=== PATIENT | female | born 1965 | race Caucasian/White ===

== ENCOUNTER 2017-05-06 17:15 | Emergency (ER) | payer SELFPAY ==
[~2017-05-06] VITALS: Ht 180.3 cm; Wt 75.0 kg
[2017-05-06] MEDS ORDERED: LEVOTHYROXIN150 MCG PO (17:24)
[2017-05-06] MEDS ORDERED: MOTRIN800 MG PO (18:13)
[2017-05-06 18:15] VITALS: BP 125/88
== END 2017-05-06 18:15 | disposition home or self-care (01) | DRG 93 ==
LOC: ED 17:15
DX: G89.29 Other chronic pain (principal); E03.9 Hypothyroidism, unspecified; M54.5 Low back pain; F17.210 Nicotine dependence, cigarettes, uncomplicated

== ENCOUNTER 2017-05-10 21:57 | Emergency (ER) | payer SELFPAY ==
[~2017-05-10] VITALS: Ht 180.3 cm; Wt 74.8 kg
[~2017-05-10 21:57] MED LIST: LEVOTHYROXIN150 MCG PO; MOTRIN800 MG PO
[2017-05-10 22:49] LABS: URINE BILIRUBIN - DIPSTICK NEGATIVE (NEGATIVE); URINE BLOOD DIPSTICK NEGATIVE (NEGATIVE); URINE CLARITY CLEAR; URINE COLOR YELLOW; URINE GLUCOSE - DIPSTICK NEGATIVE (NEGATIVE); URINE KETONE NEGATIVE (NEGATIVE); URINE LEUK ESTERASE TRACE (NEGATIVE); URINE NITRITE - DIPSTICK NEGATIVE (Negative); URINE PH 5.5 (4.5-8.0); URINE PROTEIN - DIPSTICK NEGATIVE (NEG-TRACE); URINE SPECIFIC GRAVITY 1.025; URINE UROBILINOGEN - DIPSTICK 0.2 E.U./dL (0.2)
[2017-05-10 22:50] LABS: COCAINE NEGATIVE (NEGATIVE); METHADONE NEGATIVE (NEGATIVE); TETRAHYDROCANNABIONOL NEGATIVE (NEGATIVE)
[2017-05-10 22:51] LABS: BARBITURATES NEGATIVE (NEGATIVE); OXCYCODONE POSITIVE (NEGATIVE); TRICYLIC ANTIDEPRESSANTS NEGATIVE (NEGATIVE)
[2017-05-11] MEDS ORDERED: ULTRAM50 M1 PO (00:05)
[2017-05-11] MEDS ORDERED: FLEXERIL PO (00:05)
[2017-05-11 00:26] VITALS: BP 143/65
== END 2017-05-11 00:22 | disposition home or self-care (01) | DRG 563 ==
LOC: ED 21:57
PROVIDERS: Emergency Medicine
DX: S39.012A Strain of muscle, fascia and tendon of lower back, initial encounter (principal); M47.817 Spondylosis without myelopathy or radiculopathy, lumbosacral region

== ENCOUNTER 2019-05-24 12:48 | Emergency (ER) | payer BC ==
[~2019-05-24 12:48] MED LIST changes: +EQL IBUPROFEN200 MG PO; +FLEXERIL PO; +HYDROCODONE/ACE1 TAB PO; +MELOXICAM15 MG PO; +TERBINAFINE250 M1 PO; +ULTRAM50 M1 PO
== END 2019-05-24 12:49 | disposition left against medical advice (07) | DRG 951 ==
LOC: ED 12:48 → LWOBS 12:49
DX: Z91.19 Patient's noncompliance with other medical treatment and regimen (principal)

== ENCOUNTER 2020-01-02 | Emergency (ER) | payer SELFPAY ==
[2020-01-02 18:43] LABS: HEMATOCRIT 38.7 % (37.0-47.0); HEMOGLOBIN 12.7 g/dl (12.0-16.0); IMMATURE GRANULOCYTES 0.3 % (0.0-5.0); MEAN CELL VOLUME 91.7 fL CALC (80.0-100.0); MEAN CORPUSCULAR HGB 30.1 pG CALC (26.0-32.0); MEAN CORPUSCULAR HGB CONC 32.8 g/L CALC (32.0-36.0); NEUT# 7.08 thou/uL (2.00-7.15); RED BLOOD COUNT 4.22 mill/uL (4.20-5.60); RED CELL DISTRI WIDTH 13.4 % (11.5-15.5)
[2020-01-02 19:17] LABS: URINE BILIRUBIN - DIPSTICK SMALL (NEGATIVE); URINE BLOOD DIPSTICK NEGATIVE (NEGATIVE); URINE COLOR YELLOW; URINE GLUCOSE - DIPSTICK NEGATIVE (NEGATIVE); URINE KETONE TRACE mg/dL (NEGATIVE); URINE LEUK ESTERASE NEGATIVE (NEGATIVE); URINE NITRITE - DIPSTICK NEGATIVE (Negative); URINE PH 8.5 (4.5-8.0); URINE PROTEIN - DIPSTICK 100 mg/dL (NEG-TRACE)
[2020-01-02 19:32] LABS: URINE SQUAMOUS EPITHELIAL CELL MODERATE EPI/hpf (0-FEW)
[2020-01-02 19:33] LABS: BARBITURATES NEGATIVE (NEGATIVE); COCAINE NEGATIVE (NEGATIVE); METHADONE NEGATIVE (NEGATIVE); OXCYCODONE NEGATIVE (NEGATIVE); TETRAHYDROCANNABIONOL POSITIVE (NEGATIVE); TRICYLIC ANTIDEPRESSANTS NEGATIVE (NEGATIVE)
[2020-01-02 19:40] LABS: ALBUMIN 4.8 g/dL (3.2-5.0); BILIRUBIN, TOTAL 0.7 mg/dL (0.0-1.4); CREATININE 1.2 mg/dL (0.5-1.0); POTASSIUM 4.5 mmol/l (3.5-5.1); TOTAL PROTEIN 8.2 g/dL (6.3-8.2)
[2020-01-02] MEDS ORDERED: XANAX1 MG PO (20:11)
== END 2020-01-02 20:23 | disposition designated cancer center or children's hospital (05) | DRG 880 ==
PROVIDERS: Family Medicine
DX: R45.851 Suicidal ideations (principal); F32.9 Major depressive disorder, single episode, unspecified; F41.0 Panic disorder [episodic paroxysmal anxiety]; F19.10 Other psychoactive substance abuse, uncomplicated

== ENCOUNTER 2020-04-22 14:48 | Emergency (ER) | payer SELFPAY ==
[~2020-04-22 14:48] MED LIST changes: +XANAX1 MG PO
[2020-04-22] MEDS ORDERED: LEVOTHYROXIN150 MCG PO (15:26)
[2020-04-22 16:15] VITALS: BP 121/79
== END 2020-04-22 16:15 | disposition home or self-care (01) | DRG 605 ==
LOC: ED 14:48
DX: S80.212A Abrasion, left knee, initial encounter (principal); S83.92XA Sprain of unspecified site of left knee, initial encounter; S50.11XA Contusion of right forearm, initial encounter; F17.210 Nicotine dependence, cigarettes, uncomplicated; V18.0XXA Pedal cycle driver injured in noncollision transport accident in nontraffic accident, initial encounter; Y93.55 Activity, bike riding

== ENCOUNTER 2020-08-19 15:54 | Observation (INO) | payer OTHER ==
[~2020-08-19] VITALS: Ht 177.8 cm; Wt 56.2 kg
--- NOTE | 2020-08-19 15:54 | NUR ---
PATIENT RESTING ON EMS STRETCHER AWAITING ROOM ASSIGNMENT NOTIFIED OF PATIENT STATUS
--- NOTE | 2020-08-19 17:00 | NUR ---
PT RESTING TEARY EYED AT TIMES ASKING IF WE CAN FIND OUT HOW HER HUSBAMND IS HE "COLLAPSED YESTERDAY" WAS BROUGHT HERE AND THEN SENT TO [facility], INFORMED PT WE CANNOT OBTIANED THAT INFO, CHEST PAIN RESOLVING AT THIS TIME PER PT STARTED ANOUT 1530 TODAY WHILE AT [facility]ISON. OFFICER REMAINS AT BEDSIDE
[2020-08-19 17:27] LABS: HEMATOCRIT 37.4 % (37.0-47.0); IMMATURE GRANULOCYTES 0.4 % (0.0-5.0); MEAN CELL VOLUME 91.4 fL CALC (80.0-100.0); MEAN CORPUSCULAR HGB 29.3 pG CALC (26.0-32.0); MEAN CORPUSCULAR HGB CONC 32.1 g/dL CAL (32.0-36.0); NEUT# 5.44 thou/uL (2.00-7.15); RED BLOOD COUNT 4.09 mill/uL (4.20-5.60); RED CELL DISTRI WIDTH 13.5 % (11.5-15.5)
--- NOTE | 2020-08-19 17:30 | NUR ---
LEONARDO XRAY COMPLETED AND LAB WAS IN EARLIER TO REDRAW BLOOD FOR HEMOLYZED SPEC'S.
[2020-08-19 17:40] LABS: ALKALINE PHOSPHATASE 88 u/l (38-126); ANION GAP 10 (6-22 (CALC)); BUN 15 mg/dL (7-17); BUN/CREATININE RATIO 16 (12-20 (CALC)); CARBON DIOXIDE 30 mmol/l (22-30); CHLORIDE 99 mmol/l (95-108); CREATININE 0.9 mg/dL (0.5-1.0); GFR > 60 ML/MIN (>=60 (CALC)); GFR FOR AFR.AMER. > 60 ML/MIN (>=60 (CALC)); POTASSIUM 4.1 mmol/l (3.5-5.1); SGOT/AST 38 u/l (14-36); SODIUM 134 mmol/l (137-146); TOTAL PROTEIN 6.9 g/dL (6.3-8.2)
[2020-08-19 17:43] LABS: ALBUMIN 3.8 g/dL (3.2-5.0); BILIRUBIN, TOTAL 0.4 mg/dL (0.0-1.4)
--- NOTE | 2020-08-19 18:43 | NUR ---
PT OOB TO BSC, GUARD REMAINS AT BEDSIDE PT AWARE OF NEED FOR URINE SPEC.
--- NOTE | 2020-08-19 19:24 | NUR ---
REPORT CALLED TO [facility] ON MED SURG
--- NOTE | 2020-08-19 19:30 | NUR ---
PT ARRIVED TO UNIT AT 1930 VIA SNEHA FROM THE ED; ALERT AND ORIENTED AND IN STABLE CONDITION. AMBULATED INDEPENDENLTY WITH STEADY GAIT FROM THE STRETCHER TO THE BED. PT FROM A CORRECTIONAL FACILITY SO GUARD SHACKLED PTS LEFT LEG TO THE HOSPITAL BED. ONE GUARD REMAINED BEDSIDE. PT DENIES PAIN. RESPIRATIONS ARE EVEN AND UNLABORED ON ROOM AIR; PT #18G IV IN THE RAC WHICH IS PATENT AND FREE OF REDNESS. PT ORIENTED TO ROOM AND CALL LIGHT SYSTEM. PLAN OF CARE DISCUSSED. PT ENCOURAGED TO VERBALIZE CONCERNS. STATES UNDERSTANDING. SAFETY MEASURES IN PLACE. CALL LIGHT WITHIN REACH.
--- NOTE | 2020-08-19 19:39 | NUR ---
PT. TAKEN TO [facility] STRETCHER, NO C/O.
[2020-08-19 19:43] LABS: URINE BILIRUBIN - DIPSTICK NEGATIVE (NEGATIVE); URINE BLOOD DIPSTICK NEGATIVE (NEGATIVE); URINE COLOR YELLOW; URINE GLUCOSE - DIPSTICK NEGATIVE (NEGATIVE); URINE KETONE NEGATIVE (NEGATIVE); URINE LEUK ESTERASE NEGATIVE (NEGATIVE); URINE NITRITE - DIPSTICK NEGATIVE (Negative); URINE PH 7.5 (4.5-8.0); URINE PROTEIN - DIPSTICK NEGATIVE (NEG-TRACE); URINE SPECIFIC GRAVITY 1.015; URINE UROBILINOGEN - DIPSTICK 0.2 E.U./dL (0.2)
[2020-08-19 19:50] VITALS: BP 115/73
[2020-08-20] VITALS: BP 109/72
--- NOTE | 2020-08-20 00:02 | NUR ---
PT SEEN EYES CLOSED IN NO APPARENT DISTRESS OR DISCOMFORT. ONE GUARD PRESENT. CALL WYLIE WITH REACH. WILL CONTINUE TO MONITOR.
[2020-08-20 04:00] VITALS: BP 121/77
--- NOTE | 2020-08-20 04:17 | NUR ---
PT REMAINS RESTING WITH EYES CLOSED. NO SIGNS OF DISTRESS. SHACKLES TO LEFT LEG; CIRCULATION CHECKED. GUARD SEATED BEDSIDE. CALL LIGHT WITHIN REACH. WILL CONTINUE TO MONITOR.
[2020-08-20 06:38] LABS: CALCULATED LDLCHOLESTEROL 100 mg/dL (62-129 (CALC)); CHOLESTEROL HDL RATIO 2.7 (<4.4 (CALC)); HDL CHOLESTEROL 76 mg/dL (>=40); MAGNESIUM 2.1 mg/dL (1.6-2.3); TOTAL CHOLESTEROL 203 mg/dl (0-199); TOTAL TRIGLYCERIDES 133 mg/dl (30-149); VLDL CHOLESTROL 27 mg/dl (2-49 (CALC))
[2020-08-20 07:13] VITALS: BP 96/59
--- NOTE | 2020-08-20 08:00 | NUR ---
Patient alert and oriented, denied any anxiety. Patient stated that she wanted to be tested for SCD'S. Spoke with PATRICE Carvajal, she stated that patien will not be tested for SCD'S. Pt had jeffrey at bedside. Denied any discomfort
[2020-08-20 12:04] VITALS: BP 87/61
[2020-08-20 15:18] VITALS: BP 101/66
--- NOTE | 2020-08-20 16:00 | NUR ---
IV site discontinued, cath intact. No edema , no redness, voices no discomfort.
--- NOTE | 2020-08-20 16:11 | NUR ---
Discharge instructions given. Patient verbalizes understanding of same. [facility] All belongings sent with pt.
== END 2020-08-20 16:00 | DRG 313 ==
LOC: ED 15:54 → ED-I 16:58 → ED 18:13 → MS2 18:14
PROVIDERS: Family Medicine; ADMIT Internal Medicine; ATTEND Internal Medicine
DX: R07.9 Chest pain, unspecified (principal); E89.0 Postprocedural hypothyroidism; T38.1X6A Underdosing of thyroid hormones and substitutes, initial encounter; F32.9 Major depressive disorder, single episode, unspecified; F41.9 Anxiety disorder, unspecified; F17.200 Nicotine dependence, unspecified, uncomplicated; Z91.128 Patient's intentional underdosing of medication regimen for other reason; Z20.828 Contact with and (suspected) exposure to other viral communicable diseases
CPT/HCPCS: G0378

== ENCOUNTER 2020-09-23 01:53 | Emergency (ER) | payer SELFPAY ==
[~2020-09-23] VITALS: Ht 177.8 cm; Wt 61.0 kg
[2020-09-23 03:06] VITALS: BP 141/77
[2020-09-23] MEDS ORDERED: VOLTAREN75 MG PO (03:16)
[2020-09-23] MEDS ORDERED: TRAMADOL HYDROC50 MG PO (03:16)
== END 2020-09-23 03:44 | disposition home or self-care (01) | DRG 556 ==
LOC: ED 01:53
DX: M25.512 Pain in left shoulder (principal)

== ENCOUNTER 2020-09-25 08:15 | Emergency (ER) | payer SELFPAY ==
[~2020-09-25] VITALS: Ht 177.8 cm; Wt 62.0 kg
[~2020-09-25 08:15] MED LIST changes: +TRAMADOL HYDROC50 MG PO; +VOLTAREN75 MG PO
[2020-09-25] MEDS ORDERED: EUTHYROX137 MCG PO (08:35)
[2020-09-25] MEDS ORDERED: NAPROXEN375 MG PO (09:38)
[2020-09-25] MEDS ORDERED: FLEXERIL5 M1 PO (09:38)
[2020-09-25 09:50] VITALS: BP 133/89
== END 2020-09-25 10:00 | disposition home or self-care (01) | DRG 556 ==
LOC: ED 08:15
DX: M25.512 Pain in left shoulder (principal)

== ENCOUNTER 2020-10-02 12:39 | Emergency (ER) | payer SELFPAY ==
[~2020-10-02] VITALS: Ht 177.8 cm; Wt 61.6 kg
[~2020-10-02 12:39] MED LIST changes: +EUTHYROX137 MCG PO; +FLEXERIL5 M1 PO; +NAPROXEN375 MG PO
[2020-10-02] MEDS ORDERED: TRAMADOL HYDROC50 M1 PO (14:10)
[2020-10-02 14:25] VITALS: BP 128/85
== END 2020-10-02 14:25 | disposition home or self-care (01) | DRG 552 ==
LOC: ED 12:39
DX: M47.812 Spondylosis without myelopathy or radiculopathy, cervical region (principal); F17.210 Nicotine dependence, cigarettes, uncomplicated

== ENCOUNTER 2020-10-04 14:28 | Observation (INO) | payer SELFPAY ==
[~2020-10-04] VITALS: Ht 175.3 cm; Wt 57.3 kg
[~2020-10-04 14:28] MED LIST changes: +TRAMADOL HYDROC50 M1 PO
--- NOTE | 2020-10-04 14:28 | NUR ---
PATEINT IMMEDIATELY TO TREATMENT ARE AND MD AT BEDSIDE
--- NOTE | 2020-10-04 14:30 | NUR ---
PATIENT STATES ARM PAIN FOR PAST 2 WEEKS AND WORSENING OVER THE PAST 2 DAYS. PATIENT STATES SYMPTOMS STARTED GRADUALLY. PATIENT IS ABLE TO BEND ARM AND MOVE FINGERTIPS WITHOUT DIFFICULTY. PATIENT HAS NO OTHER DEFICITS NOTED AT THIS TIME. MD AT BEDSIDE FOR EVAL. PATIENT REQUESTING NARCOTIC PAIN MEDICATION
--- NOTE | 2020-10-04 15:30 | NUR ---
PATIENT RESTING RATING ARM PAIN 4 ON 0-10 SCALE. PATIENT AWAITING LAB AND RADIOLOGY RESULTS. PATIENT HAS NO FOCAL NEURO DEFICITS AT THIS TIME
[2020-10-04 15:34] LABS: HEMATOCRIT 32.4 % (37.0-47.0); HEMOGLOBIN 10.3 g/dl (12.0-16.0); IMMATURE GRANULOCYTES 0.5 % (0.0-5.0); MEAN CELL VOLUME 93.9 fL CALC (80.0-100.0); MEAN CORPUSCULAR HGB 29.9 pG CALC (26.0-32.0); MEAN CORPUSCULAR HGB CONC 31.8 g/dL CAL (32.0-36.0); NEUT# 8.9 thou/uL (2.00-7.15); RED BLOOD COUNT 3.45 mill/uL (4.20-5.60); RED CELL DISTRI WIDTH 14.2 % (11.5-15.5)
[2020-10-04 15:51] LABS: ALBUMIN 3.3 g/dL (3.2-5.0); ANION GAP 11 (6-22 (CALC)); BILIRUBIN, TOTAL 0.3 mg/dL (0.0-1.4); BUN 19 mg/dL (7-17); BUN/CREATININE RATIO 19 (12-20 (CALC)); CARBON DIOXIDE 29 mmol/l (22-30); CHLORIDE 101 mmol/l (95-108); GFR 58 ML/MIN (>=60 (CALC)); GFR FOR AFR.AMER. > 60 ML/MIN (>=60 (CALC)); POTASSIUM 3.7 mmol/l (3.5-5.1); SGOT/AST 54 u/l (14-36); SODIUM 136 mmol/l (137-146); TOTAL PROTEIN 6.6 g/dL (6.3-8.2)
[2020-10-04 15:57] LABS: ALKALINE PHOSPHATASE 414 u/l (38-126)
--- NOTE | 2020-10-04 16:02 | NUR ---
PATIENT BROUGHT BACK FROM MRI STATING NEEDING NARCOTIC PAIN MEDICATION SO THAT SHE CAN LAY IN MRI. MD NOTIFED OF PATIENTS REQUEST
--- NOTE | 2020-10-04 16:11 | NUR ---
PATIENT RETURNED FROM MRI UNABLE TO PERFORM EXAM STATING HER ARM HURTS TOO MUCH TO LAY STILL. NOTIFIED
[2020-10-04] MEDS ORDERED: CYCLOBENZAPR5 MG PO (16:41)
[2020-10-04] MEDS ORDERED: NAPROXEN375 MG PO (16:41)
[2020-10-04] MEDS ORDERED: ALPRAZOLAM0.5 MG PO (16:42)
[2020-10-04] MEDS ORDERED: DICLOFENAC SODI75 MG PO (16:42)
[2020-10-04] MEDS ORDERED: REMERON30 MG PO (16:43)
[2020-10-04] MEDS ORDERED: LEVOTHYROXIN137 MCG PO (16:43)
--- NOTE | 2020-10-04 17:36 | NUR ---
PATIENT RESTING AWAITING ROOM ASSIGNMENT. PATIENT STATES PAIN 3 ON 0-10 SCALE
--- NOTE | 2020-10-04 18:30 | NUR ---
PATIENT RESTING AWAITNG DISPOSITION PATIENT STATED PAIN 3 ON 0-10 SCALE
--- NOTE | 2020-10-04 19:30 | NUR ---
PATIENT RESTING AWAITING ROOM ASSIGNMENT. PATIENT STATES PAIN 3 ON 0-10 SCALE
--- NOTE | 2020-10-04 20:42 | NUR ---
REPORT CALLED TO DERIC IN MED SURG
--- NOTE | 2020-10-04 20:51 | NUR ---
PATIENT TRANSITIONED FROM STRETCHER TO WHEELCHAIR USING LEFT ARM TO PUSH OFF WITH PATIENT APPEARED TO DO THIS WITHOUT DIFFICULTY. PATIENT FACES SCALE OF 0 ON A 0-10 SCALE.
--- NOTE | 2020-10-04 20:51 | NUR ---
PATIENT TRANSPORT TO MED SURG VIA WHEELCHAIR
[2020-10-04 21:00] VITALS: BP 142/83
--- NOTE | 2020-10-05 03:54 | NUR ---
PATIENT CALLED AND C/O SEVERE PAIN TO BACK, NECK SHOULDERS, EVERYWHERE. MEDICATED PATIENT WITH TYLENOL 650MG PO FOR 08/27. PATIENT STATES PLEASE GIVE ME MORE THAN 2 I TAKE MORE THAN THAT AT HOME. I TAKE 4 OR 5 AT HOME. PATIENT INSTRUCTED THAT TAKING TOO MUCH TYLENOL CAN CAUSE OVERDOSE WITH LIVER DAMAGE ALONG WITH OTHER COMPLICATIONS. PATIENT FOUND WITH HER LEFT ARM BENT ABOVE HER HEAD AFTER TELLING STAFF OVER AND OVER THAT SHE COULD NOT MOVE IT. DOESN'T KNOW HOW IT GOT THERE BUT THEM BACK DOWN AT HER SIDE. PATIENT CONSTANTLY MOANING BUT NO TEARS. MEDICATED WITH XANAX 0.5MGT PO, IVF NS PATENT AND INFUSING AT 75CC/HR. SITE REMAINS HEALTHY. CALL LIGHT IN REACH. WILL CONT TO MONITOR.
[2020-10-05 04:00] VITALS: BP 157/88
--- NOTE | 2020-10-05 05:28 | NUR ---
PATIENT APPEARS SLEEPING WITH EYES CLOSED POSITIONED ON LEFT SIDE. IVF PATENT AND INFUSING VIA LEFT FOREARM SITE AT 75CC/HR. CALL LIGHT IN REACH. WILL CONT TO MONITOR.
[2020-10-05 05:40] LABS: HEMATOCRIT 32.3 % (37.0-47.0); HEMOGLOBIN 10.1 g/dl (12.0-16.0); IMMATURE GRANULOCYTES 0.6 % (0.0-5.0); MEAN CELL VOLUME 94.2 fL CALC (80.0-100.0); MEAN CORPUSCULAR HGB 29.4 pG CALC (26.0-32.0); MEAN CORPUSCULAR HGB CONC 31.3 g/dL CAL (32.0-36.0); NEUT# 9.76 thou/uL (2.00-7.15); RED BLOOD COUNT 3.43 mill/uL (4.20-5.60); RED CELL DISTRI WIDTH 14.2 % (11.5-15.5)
[2020-10-05 06:01] LABS: ALBUMIN 3.3 g/dL (3.2-5.0); ALKALINE PHOSPHATASE 402 u/l (38-126); ANION GAP 10 (6-22 (CALC)); BILIRUBIN, TOTAL 0.3 mg/dL (0.0-1.4); BUN 17 mg/dL (7-17); BUN/CREATININE RATIO 24 (12-20 (CALC)); CARBON DIOXIDE 27 mmol/l (22-30); CHLORIDE 102 mmol/l (95-108); CREATININE 0.7 mg/dL (0.5-1.0); GFR > 60 ML/MIN (>=60 (CALC)); GFR FOR AFR.AMER. > 60 ML/MIN (>=60 (CALC)); POTASSIUM 4.3 mmol/l (3.5-5.1); SGOT/AST 37 u/l (14-36); SODIUM 135 mmol/l (137-146); TOTAL PROTEIN 6.8 g/dL (6.3-8.2)
[2020-10-05 06:56] VITALS: BP 149/92
--- NOTE | 2020-10-05 07:00 | NUR ---
REPORT RECEIVED FROM RA UDAY. PT RESTING IN BED. NO S/S OF DISTRESS AT THIS TIME. SAFETY PRECAUTIONS IN PLACE.
[2020-10-05 07:51] VITALS: BP 142/87
--- NOTE | 2020-10-05 07:51 | NUR ---
PT RESTING IN BED ON HER LEFT SIDE, EASILY AROUSED. VS OBTAINED AND ASSESSMENT COMPLETED. RESPIRATIONS ARE EVEN AND UNLABORED ON RA. LUNGS SOUND CLEAR. SAFETY PRECAUTIONS IN PLACE, WILL CONTINUE TO MONITOR.
--- NOTE | 2020-10-05 08:40 | NUR ---
REPORT RECEIVED FROM RA UDAY. PT RESTING IN BED. NO S/S OF DISTRESS AT THIS TIME. SAFETY PRECAUTIONS IN PLACE.
[2020-10-05 10:03] LABS: URINE BILIRUBIN - DIPSTICK NEGATIVE (NEGATIVE); URINE BLOOD DIPSTICK NEGATIVE (NEGATIVE); URINE COLOR YELLOW; URINE GLUCOSE - DIPSTICK NEGATIVE (NEGATIVE); URINE KETONE NEGATIVE (NEGATIVE); URINE LEUK ESTERASE TRACE (NEGATIVE); URINE NITRITE - DIPSTICK NEGATIVE (Negative); URINE PH 7.5 (4.5-8.0); URINE PROTEIN - DIPSTICK NEGATIVE (NEG-TRACE); URINE UROBILINOGEN - DIPSTICK 0.2 E.U./dL (0.2)
--- NOTE | 2020-10-05 12:28 | NUR ---
PT RESTING IN BED, NO S/S OF DISTRESS AT THIS TIME. SAFETY PRECAUTIONS IN PLACE. WILL CONTINUE TO MONITOR.
[2020-10-05 15:52] VITALS: BP 151/96
--- NOTE | 2020-10-05 17:17 | NUR ---
PT RESTING IN BED WITH EYES CLOSED, EASILY AROUSED. PT REPORTS HAVING PAIN IN HER NECK/BACK. PT MEDICATED PER EMAR ORDERS.
--- NOTE | 2020-10-05 18:36 | NUR ---
PT PROVIDED WITH DISCHARGE PACKET, IV #20 LAC REMOVED, PT DENIES ANY QUESTIONS OR CONCERNS
== END 2020-10-05 19:24 | disposition home or self-care (01) | DRG 93 ==
LOC: ED 14:28 → ED-I 16:01 → ED 16:13 → MS2 16:14
PROVIDERS: Family Medicine; Nurse Practitioner Family; ADMIT Internal Medicine; ATTEND Internal Medicine
DX: R20.2 Paresthesia of skin (principal); M54.2 Cervicalgia; F17.200 Nicotine dependence, unspecified, uncomplicated; E03.9 Hypothyroidism, unspecified; F41.9 Anxiety disorder, unspecified; F32.9 Major depressive disorder, single episode, unspecified; M54.9 Dorsalgia, unspecified; G89.29 Other chronic pain; M19.90 Unspecified osteoarthritis, unspecified site; Z23 Encounter for immunization; Z20.828 Contact with and (suspected) exposure to other viral communicable diseases
CPT/HCPCS: G0378